=== PATIENT | female | born 1945 | race Caucasian/White ===

== ENCOUNTER → 2017-12-05 | Outpatient (CLI) | payer OTHER ==
[2017-12-05 12:23] LABS: ALBUMIN 3.7 g/dL (3.4-5.0); DIRECT BILIRUBIN 0.2 mg/dL (<0.1-0.3); TOTAL BILIRUBIN 0.7 mg/dL (<0.1-1.0); TOTAL PROTEIN 7.5 g/dL (6.4-8.2)
== END ==
LOC: M.LAB 11:39
PROVIDERS: Nurse Practitioner Adult Health
DX: R94.5 Abnormal results of liver function studies (principal); I10 Essential (primary) hypertension

== ENCOUNTER → 2017-12-10 | Outpatient (CLI) | payer OTHER | LOC: M.CT 07:34 | DX: R10.31 Right lower quadrant pain (principal); R94.5 Abnormal results of liver function studies; Z90.710 Acquired absence of both cervix and uterus; Z90.49 Acquired absence of other specified parts of digestive tract ==

== ENCOUNTER → 2019-08-06 | Outpatient (CLI) | payer OTHER | LOC: M.RAD 10:38 | PROVIDERS: ATTEND Specialist | DX: Z78.0 Asymptomatic menopausal state (principal); E55.9 Vitamin D deficiency, unspecified ==